=== PATIENT | male | born 1945 | race Caucasian/White ===

== ENCOUNTER 2022-03-23 08:42 | Day surgery (SDC) | payer MEDICARE ==
[~2022-03-23] VITALS: Ht 177.8 cm; Wt 94.4 kg
[2022-03-23 08:58] VITALS: BP 121/93; PULSE 102; TEMP 98.7
[2022-03-23] MEDS ORDERED: EPA FISH OIL1 SGL PO (09:02)
[2022-03-23] MEDS ORDERED: ELIQUIS 5MG PO (09:02)
[2022-03-23] MEDS ORDERED: TOPROL XL 25MG25 MG PO (09:03)
[2022-03-23] MEDS ORDERED: MULTI VITAMINS1 TAB PO (09:04)
[2022-03-23] MEDS ORDERED: CIALIS5 MG PO (09:04)
--- NOTE | 2022-03-23 09:39 | NUR ---
Initial visit; Patient and his thanked Licensed Occupational Therapy Assistant for offering prayer for him prior to his 'Procedure,' and wishing him good health and God's blessings.
[2022-03-23 09:45] VITALS: BP 122/56; PULSE 94; TEMP 97
--- NOTE | 2022-03-23 09:54 | NUR ---
0945 - PT arrives and was settled by Haleigh THOMPSON; PT oriented to room and call shepherd, within reach. Verbal report obtained at RN station. PT provided with a warm muffin and hot coffee, per request; as well as his . PT denies nausea. NO vomiting. Denies pain. Will monitor per intervals.
[2022-03-23 10:00] VITALS: BP 120/88; PULSE 93
--- NOTE | 2022-03-23 10:06 | NUR ---
1000 - VSS. PT had finished his muffin and continues to drink his coffee. Denies nasuea and pain. PT expressed desire to be discharged. Call shepherd remains within reach. Awaiting DR to speak with PT.
[2022-03-23 10:15] VITALS: BP 123/91; PULSE 110
--- NOTE | 2022-03-23 10:21 | NUR ---
1015 - VSS. IV discontinued. Catheter tip intact. Pressure bandage applied. NO redness or swelling noted. DC instructions and educational material reviewed with the PT, who verbalized understanding and signed the related paperwork. Questions answered to PT satisfaction. PT refused RN assistance changing; Mariana remains present and states she will assist instead. Call shepherd remains within reach if needed.
--- NOTE | 2022-03-23 10:33 | NUR ---
PT dismissed from endo via wheelchair by Jen THOMPSON to PT entrence; PT has DC packet and personal belongings and was transferred into the care of his , who is driving private van.
== END 2022-03-23 10:35 | disposition home or self-care (01) ==
LOC: SDCO 08:42
DX: Z12.11 Encounter for screening for malignant neoplasm of colon (principal); K57.30 Diverticulosis of large intestine without perforation or abscess without bleeding; R19.7 Diarrhea, unspecified; K52.832 Lymphocytic colitis
CPT/HCPCS: J2704; J7030